=== PATIENT | male | born 1950 | race Caucasian/White ===

== ENCOUNTER 2024-01-30 05:49 | Inpatient (IN) | payer MEDICARE, OTHER ==
[~2024-01-30] VITALS: Ht 180.3 cm; Wt 81.6 kg
[2024-01-30] MEDS ORDERED: VANCOMYCIN 1 GM VIAL ONE (07:13)
[2024-01-30] MEDS ORDERED: ANESTHESIA TRAY IN PYXIS 1 EA TRAY MC ONE (07:13)
[2024-01-30] MEDS ORDERED: LIDOCAINE 2%-EPI 1:100,000 30 ML VIAL ONE (07:13)
[2024-01-30] MEDS ORDERED: dexaMETHasone SOD PHOSPHATE 0 ML ONE (07:13)
[2024-01-30] MEDS ORDERED: OXYMETAZOLINE HCL NASAL SPRAY 30 ML BOTTLE NS ONE (07:24)
[2024-01-30] MEDS ORDERED: LIDOCAINE 2% JEL UROJET 10 ML MM ONE (07:45)
[2024-01-30] MEDS ORDERED: FENTANYL PF 100MCG/2ML AMPUL ONE (07:45)
[2024-01-30] MEDS ORDERED: ROCURONIUM BROMIDE 50 MG/5 ML ONE (07:46)
[2024-01-30] MEDS ORDERED: MIDAZOLAM HCL 2 MG/2ML VIAL ONE (07:46)
[2024-01-30] MEDS ORDERED: FAMOTIDINE/PF INJ 20 MG/2 ML VIAL IV ONE (07:46)
[2024-01-30] MEDS ORDERED: ASPI-1420 PO (11:33)
[2024-01-30] MEDS ORDERED: TAMS-12 PO (11:33)
[2024-01-30] MEDS ORDERED: ROSU20TA32 PO (11:33)
[2024-01-30] MEDS ORDERED: TELM20TA8 PO (11:33)
[2024-01-30] MEDS ORDERED: HYDR25TA4 PO (11:33)
[2024-01-30] MEDS ORDERED: CHOL200059 PO (11:33)
[2024-01-30] MEDS ORDERED: MOUNJARO SQ (11:33)
[2024-01-30] MEDS ORDERED: ALLO100T PO (11:33)
[2024-01-30] MEDS ORDERED: TADA5TAB13 PO (11:33)
[2024-01-30] MEDS ORDERED: ACETAMINOPHEN 325 MG TABLET PO PRN ×2 (12:00→18:00)
[2024-01-30] MEDS ORDERED: HYDROMORPHONE 1 MG/1 ML DISP.SYRIN IV PRN (12:00)
[2024-01-30] MEDS ORDERED: ONDANSETRON HCL/PF 4 MG/2 ML VIAL IV PRN (12:00)
[2024-01-30] MEDS: IV NS 0.9% 1,000 ML IV PRN (14:38)
[2024-01-30] MEDS ORDERED: HOME MED MISCELLANEOUS XX SCH (18:00)
[2024-01-30] MEDS ORDERED: ONDANSETRON HCL/PF 4 MG/2 ML VIAL IVP PRN (18:00)
[2024-01-30] MEDS ORDERED: HYDROCODONE/APAP 5/325MG TABLET PO PRN (18:00)
[2024-01-30] MEDS ORDERED: MAG HYDROX/AL HYDROX/SIMETH 30 ML UDC PO PRN (18:00)
[2024-01-30] MEDS ORDERED: MAGNESIUM HYDROXIDE 30 ML UDC PO PRN (18:00)
[2024-01-30] MEDS ORDERED: MORPHINE SULFATE INJ 2 MG/ML DISP.SYRIN IV PRN (18:00)
[2024-01-30] MEDS ORDERED: Z GUARD REMEDY 4 OZ OINT TP PRN (18:00)
[2024-01-30] MEDS: VANCOMYCIN 1 GM in IV D5W 250ml IV SCH (19:36)
[2024-01-30 20:35] VITALS: BP 116/65; TEMP 98.1; O2SAT 98
[2024-01-31] MEDS: ZOLPIDEM TARTRATE 5 MG TABLET PO PRN (01:47)
[2024-01-31 07:15] LABS: BASOPHILS % (AUTO) 0.1 % (0.0-2.0); EOSINOPHILS % (AUTO) 0.1 % (0.0-6.0); HEMATOCRIT 32 % (39-51); HEMOGLOBIN 10.6 g/dL (13.5-17.5); LYMPHOCYTES # (AUTO) 1.3 K/uL (0.8-4.8); LYMPHOCYTES % (AUTO) 11.3 % (20.0-44.0); MEAN CORPUSCULAR HEMOGLOBIN 29 PG (26.0-33.0); MEAN CORPUSCULAR HGB CONC 33 g/dl (31.0-36.0); MEAN CORPUSCULAR VOLUME 86 fL (80-96); MONOCYTES # (AUTO) 1.1 K/uL (0.1-1.30); NEUTROPHILS # (AUTO) 9.3 K/uL (1.8-8.9); NEUTROPHILS % (AUTO) 79.5 % (43.0-81.0); PLATELET COUNT (AUTO) 185 K/uL (150-450); RED BLOOD CELL COUNT(AUTO) 3.73 MIL/uL (4.5-6.0); RED CELL DISTRIBUTION WIDTH 13.3 % (11.5-15.0); WHITE BLOOD COUNT (AUTO) 11.7 K/uL (4.3-11.0)
[2024-01-31 07:30] VITALS: BP 100/62; TEMP 98.2; O2SAT 97
[2024-01-31] MEDS: PANTOPRAZOLE 40 MG TABLET.DR PO SCH (08:27)
[2024-01-31] MEDS: ASPIRIN EC 81 MG TABLET.DR PO SCH (08:28)
[2024-01-31] MEDS: CHOLECALCIFEROL 1,000 UNIT TABLET (VIT D3) GT SCH (08:28)
[2024-01-31] MEDS: TAMSULOSIN 0.4 MG CAP.SR.24H PO SCH (08:28)
[2024-01-31] MEDS: ATORVASTATIN 40 MG TABLET PO SCH (08:28)
[2024-01-31] MEDS: ALLOPURINOL 100 MG TABLET PO SCH (08:28)
[2024-01-31] MEDS: LOSARTAN POTASSIUM 25 MG TABLET PO SCH (08:36)
[2024-01-31 08:37] VITALS: BP 100/62
[2024-01-31] MEDS: HYDROCHLOROTHIAZIDE 25 MG TABLET PO SCH (08:37)
[2024-01-31 08:59] LABS: CALCIUM, SERUM 8.8 mg/dL (8.5-10.1); MAGNESIUM 2.1 mg/dL (1.8-2.4); PHOSPHORUS 3.2 mg/dL (2.5-4.9); POTASSIUM 3.9 mmol/L (3.5-5.1)
== END 2024-01-31 10:30 | disposition home or self-care (01) | DRG 517 ==
LOC: DS 05:49 → MED 11:16
PROVIDERS: ADMIT Nurse Practitioner Acute Care; ATTEND Nurse Practitioner Acute Care
PROC: 0NBR0ZX Excision of Maxilla, Open Approach, Diagnostic (ICD-10-PCS; principal; 2024-01-31)
PROC: 0NSR04Z Reposition Maxilla with Internal Fixation Device, Open Approach (ICD-10-PCS; 2024-01-31)
PROC: 09BQ0ZZ Excision of Right Maxillary Sinus, Open Approach (ICD-10-PCS; 2024-01-31)
PROC: 0NUR0JZ Supplement Maxilla with Synthetic Substitute, Open Approach (ICD-10-PCS; 2024-01-31)
PROC: 0NHV04Z Insertion of Internal Fixation Device into Left Mandible, Open Approach (ICD-10-PCS; 2024-01-31)
PROC: 0NHT04Z Insertion of Internal Fixation Device into Right Mandible, Open Approach (ICD-10-PCS; 2024-01-31)
PROC: 0NBV0ZX Excision of Left Mandible, Open Approach, Diagnostic (ICD-10-PCS; 2024-01-31)
PROC: 0NBT0ZX Excision of Right Mandible, Open Approach, Diagnostic (ICD-10-PCS; 2024-01-31)
DX: S02.40DK Maxillary fracture, left side, subsequent encounter for fracture with nonunion (principal); X58.XXXA Exposure to other specified factors, initial encounter; Y92.9 Unspecified place or not applicable; S02.40CK Maxillary fracture, right side, subsequent encounter for fracture with nonunion; M10.9 Gout, unspecified; N40.0 Benign prostatic hyperplasia without lower urinary tract symptoms; I10 Essential (primary) hypertension; E78.5 Hyperlipidemia, unspecified; Z79.82 Long term (current) use of aspirin; Z79.899 Other long term (current) drug therapy; J32.8 Other chronic sinusitis; M27.2 Inflammatory conditions of jaws; D16.5 Benign neoplasm of lower jaw bone
CPT/HCPCS: 36415; 80048-TC; 80061-TC; 82962-TC; 83735-TC; 84100-TC; 85025-TC; 88305-TC; 88311-TC; A4223; C1713; G0378; J1100; J2250; J2405; J2704; J2765; J3010; J3370; J3490; J7030; J7060

== ENCOUNTER 2024-05-25 08:06 | Inpatient (IN) | payer MEDICARE, OTHER ==
[~2024-05-25] VITALS: Ht 180.3 cm; Wt 80.7 kg
[~2024-05-25 08:06] MED LIST: ALLO100T PO; ASPI-1420 PO; CHOL200059 PO; HYDR25TA4 PO; MOUNJARO SQ; ROSU20TA32 PO; TADA5TAB13 PO; TAMS-12 PO; TELM20TA8 PO
[2024-05-25] MEDS ORDERED: LIDOCAINE 2%-EPI 1:100,000 30 ML VIAL ONE (09:23)
[2024-05-25] MEDS ORDERED: OXYMETAZOLINE HCL NASAL SPRAY 30 ML BOTTLE NS ONE ×2 (09:23→09:26)
[2024-05-25] MEDS ORDERED: dexaMETHasone SOD PHOSPHATE 0 ML ONE (09:23)
[2024-05-25] MEDS ORDERED: VANCOMYCIN 1 GM VIAL ONE (09:23)
[2024-05-25] MEDS ORDERED: LIDOCAINE 2% JEL UROJET 10 ML MM ONE (09:25)
[2024-05-25] MEDS ORDERED: Magnesium 1 GM/2 ML VIAL ONE (09:25)
[2024-05-25] MEDS ORDERED: FENTANYL PF 100MCG/2ML AMPUL ONE (09:25)
[2024-05-25] MEDS ORDERED: FAMOTIDINE/PF INJ 20 MG/2 ML VIAL IV ONE (09:26)
[2024-05-25] MEDS ORDERED: ROCURONIUM BROMIDE 50 MG/5 ML ONE (09:26)
[2024-05-25] MEDS ORDERED: SEVOFLURANE 250 ML BOTTLE IH ONE (09:37)
[2024-05-25 11:45] VITALS: BP 122/71; TEMP 97.7; O2SAT 100
[2024-05-25 12:00] VITALS: BP 115/63; TEMP 97.5; O2SAT 98
[2024-05-25] MEDS ORDERED: ACETAMINOPHEN 325 MG TABLET PO PRN (12:00)
[2024-05-25] MEDS ORDERED: HYDROMORPHONE 1 MG/1 ML DISP.SYRIN IV PRN (12:00)
[2024-05-25] MEDS ORDERED: ONDANSETRON HCL/PF 4 MG/2 ML VIAL IV PRN (12:00)
[2024-05-25 12:15] VITALS: BP 118/65; TEMP 97.8; O2SAT 99
[2024-05-25] MEDS: IV NS 0.9% 1,000 ML IV PRN (12:36)
== END 2024-05-25 14:00 | disposition home or self-care (01) | DRG 497 ==
LOC: DS 08:06 → MED 11:47
PROVIDERS: ADMIT Nurse Practitioner Acute Care; ATTEND Nurse Practitioner Acute Care
PROC: 0NPW04Z Removal of Internal Fixation Device from Facial Bone, Open Approach (ICD-10-PCS; principal; 2024-05-25)
PROC: 0NBR0ZZ Excision of Maxilla, Open Approach (ICD-10-PCS; 2024-05-25)
PROC: 0WB30ZX Excision of Oral Cavity and Throat, Open Approach, Diagnostic (ICD-10-PCS; 2024-05-25)
DX: T84.69XA Infection and inflammatory reaction due to internal fixation device of other site, initial encounter (principal); Y83.8 Other surgical procedures as the cause of abnormal reaction of the patient, or of later complication, without mention of misadventure at the time of the procedure; Y92.009 Unspecified place in unspecified non-institutional (private) residence as the place of occurrence of the external cause; E78.5 Hyperlipidemia, unspecified; E11.9 Type 2 diabetes mellitus without complications; I10 Essential (primary) hypertension; N20.0 Calculus of kidney; N40.0 Benign prostatic hyperplasia without lower urinary tract symptoms; Z82.49 Family history of ischemic heart disease and other diseases of the circulatory system; K12.30 Oral mucositis (ulcerative), unspecified; J32.0 Chronic maxillary sinusitis; M10.9 Gout, unspecified; K13.70 Unspecified lesions of oral mucosa; Z79.82 Long term (current) use of aspirin; Z79.899 Other long term (current) drug therapy
CPT/HCPCS: 82962-TC; G0378; J1100; J1170; J2405; J2704; J2765; J3010; J3370; J3475; J3490; J7030